=== PATIENT | female | born 1960 | race Caucasian/White ===

== ENCOUNTER 2019-04-16 13:19 | Emergency (ER) | payer OTHER ==
[~2019-04-16] VITALS: Ht 160 cm; Wt 72.6 kg
[~2019-04-16 13:19] MED LIST: ANTIVERT25 MG PO; BACTRIM DS TAB1 EACH PO; BIAXIN 250MG T250 MG PO; CIPROFLOXACIN500 M1 PO; CLARITIN10 MG; FISH OIL 1,001000 M2 PO; FLAGYL500 MG PO; FLEXERIL PO; HYDROCODON-ACE1 EACH PO; METHADOSE40 MG PO; NOHOMEMEDICATIONS; NORCO 5-325 TA1 EACH PO; PHENERGAN 25 MG25 M1 PO; SERTRALINE HCL50 MG PO; ZEGERID 20 MG1 EACH PO; ZOFRAN ODT4 MG PO; ZYRTEC10 MG PO
[2019-04-16 14:20] VITALS: BP 137/68
== END 2019-04-16 14:20 | disposition home or self-care (01) ==
LOC: M.ERS 13:19
DX: S93.691A Other sprain of right foot, initial encounter (principal); S90.121A Contusion of right lesser toe(s) without damage to nail, initial encounter; Z90.710 Acquired absence of both cervix and uterus; Z90.12 Acquired absence of left breast and nipple; Z90.49 Acquired absence of other specified parts of digestive tract; Z88.0 Allergy status to penicillin; Z88.5 Allergy status to narcotic agent; Z87.891 Personal history of nicotine dependence; W01.0XXA Fall on same level from slipping, tripping and stumbling without subsequent striking against object, initial encounter; Y93.89 Activity, other specified; Y92.89 Other specified places as the place of occurrence of the external cause; Y99.8 Other external cause status

== ENCOUNTER 2020-05-06 17:35 | Emergency (ER) | payer MEDICARE ==
[~2020-05-06] VITALS: Ht 157.5 cm; Wt 83.9 kg
[2020-05-06] MEDS ORDERED: NORCO 5-325 TA1 EAC2 PO (21:30)
[2020-05-06 21:44] VITALS: BP 125/71
== END 2020-05-06 21:48 | disposition home or self-care (01) ==
LOC: M.ERS 17:35
DX: M79.671 Pain in right foot (principal); Z90.49 Acquired absence of other specified parts of digestive tract; Z90.710 Acquired absence of both cervix and uterus; Z87.891 Personal history of nicotine dependence; Z88.0 Allergy status to penicillin; Z88.6 Allergy status to analgesic agent; Z88.8 Allergy status to other drugs, medicaments and biological substances

== ENCOUNTER 2020-11-21 10:52 | Observation (INO) | payer OTHER ==
[~2020-11-21] VITALS: Ht 160 cm; Wt 88.9 kg
[~2020-11-21 10:52] MED LIST changes: +NORCO 5-325 TA1 EAC2 PO
[2020-11-21 10:58] VITALS: BP 184/76
[2020-11-21] MEDS ORDERED: OMEPRAZOLE40 MG PO (11:01)
[2020-11-21 11:30] LABS: URINE BILIRUBIN NEGATIVE (Negative); URINE BLOOD TRACE (Negative); URINE CLARITY CLEAR; URINE COLOR YELLOW; URINE GLUCOSE-RANDOM NEGATIVE (Negative); URINE KETONES NEGATIVE (Negative); URINE LEUKOCYTES-REFLEX TRACE (Negative); URINE NITRITE-REFLEX NEGATIVE (Negative); URINE PROTEIN NEGATIVE (Negative); URINE SPECIFIC GRAVITY 1.015 (1.005-1.030); URINE UROBILINOGEN 0.2 E.U./dl (0.2-1.0)
[2020-11-21 11:37] LABS: SQUAMOUS 0-3 Few /LPF (0-3); URINE WBC-REFLEX 0-5 Rare /HPF (0-5)
[2020-11-21 11:38] LABS: BACTERIA-REFLEX 1-9 Few /HPF (None Seen); CASTS None Seen /LPF (None Seen); CRYSTALS None Seen /LPF (None Seen); URINE RBC None Seen /HPF (0-2)
[2020-11-21 11:41] LABS: ABSOLUTE BASOPHILS 0.1 thou/uL (0.0-0.2); ABSOLUTE EOSINOPHILS 0.1 thou/uL (0.0-0.7); ABSOLUTE MONOCYTES 0.4 thou/uL (0.0-1.2); ABSOLUTE NEUTROPHILS 7.4 thou/uL (1.6-8.1); BASOPHILS 0.9 %; EOSINOPHILS 0.7 %; HEMATOCRIT 38.2 % (37.0-47.0); HEMOGLOBIN 12.9 gm/dL (12.0-15.0); LYMPHOCYTES 19.8 %; MCHC 33.6 g/dL (28.0-37.0); MCV 77.3 fL (80.0-100.0); MONOCYTES 4.3 %; MPV 6.7 fl. (7.2-11.1); NUCLEATED RBCS 0 /100WBC; PLATELET COUNT* 309 thou/uL (150-400); POLYS 74.3 %; RBC 4.95 mil/uL (4.20-5.00); RDW-CV 15.9 % (10.5-14.5)
[2020-11-21 11:48] LABS: CALCIUM 9.6 mg/dL (8.5-10.1); CREATININE 0.8 mg/dL (0.6-1.3); POTASSIUM 4.6 mmol/L (3.5-5.1)
[2020-11-21 11:52] LABS: APTT 30.6 Seconds (25.0-31.3); PROTIME 10.4 Seconds (9.20-11.50)
[2020-11-21 11:53] LABS: ALBUMIN 3.4 g/dL (3.4-5.0); TOTAL BILIRUBIN 0.3 mg/dL (<0.1-1.0); TOTAL PROTEIN 8.4 g/dL (6.4-8.2)
--- NOTE | 2020-11-21 14:03 | EKG ---
[place] [address] ELECTROCARDIOGRAM REPORT Name: JOSHUAYAQUELINANDREA Room: [address] M.R.#: [id number] Admission: 11/21/20 Attend Phys: Jacob Allen Discharge: Date of : 56 Date of Service: 11/21/20 1127 Report #: [id number] THIS REPORT FOR: //name// [facility] ED Test Date: 2020-11-21 Test Time: 11:27:47 Pat Name: ANDREA PEREZ Department: Room: [facility] Gender: F Server: ADAM : 1960 Requested By: Jhoana Rodney Order Number: [id number] MD: Kit Aggarwal Measurements Intervals [place] Rate: 65 P: 74 ID: [id number] QRS: 74 QRSD: 85 T: 56 QT: 413 QTc: 430 Interpretive Statements Sinus rhythm Baseline wander in lead(s) V1 Compared to ECG 12/09/2015 10:34:57 No significant changes Electronically Signed On 11-21-2020 14:03:04 [employer] by Kit Aggarwal [email or web address] <ELECTRONICALLY SIGNED> By: Kit Aggarwal MD, [facility] 11/21/20 1403 1127 1127 Kit Aggarwal MD, [facility] /EPI
[2020-11-21 16:58] VITALS: BP 130/70
[2020-11-21 17:30] VITALS: BP 168/78
[2020-11-21 20:14] VITALS: BP 151/71
[2020-11-21] MEDS ORDERED: METHADONE HCL40 MG PO (22:19)
[2020-11-22 00:33] VITALS: BP 127/69
[2020-11-22 02:06] LABS: GLYCOHEMOGLOBIN (HGB A1C) 6.2 % (4.8-5.6)
[2020-11-22 04:49] VITALS: BP 126/2
[2020-11-22 08:00] VITALS: BP 149/71
[2020-11-22] MEDS ORDERED: BACTRIM DS TAB1 EAC1 PO (10:03)
[2020-11-22 10:58] VITALS: BP 149/71
--- NOTE | 2020-11-22 14:00 | 2DMMODE ---
[place] [address] 2 D/M-MODE ECHOCARDIOGRAM Name: ANDREA PEREZ RAUL Room: [address] Shaun#: [id number] Admission: 11/21/20 Attend Phys: Jacob Allen Discharge: Date of : 56 Date of Service: 11/22/20 1359 Report #: [id number] THIS REPORT FOR: cc: EDGAR PIZANO NP, KATHERINE J. NP Liston, Michael J. MD [facility] ~ APPROVED REPORT Study performed: 11/22/2020 10:00:50 EXAM: Comprehensive 2D, Doppler, and color-flow Echocardiogram Patient Location: In-Patient Room #: [facility] Status: routine BSA: 1.78 HR: 67 bpm BP: 127/69 mmHg Rhythm: NSR Other Information Study Quality: Good Indications Dizziness 2D Dimensions IVSd: 9.82 (7-11mm) LVOT Diam: 19.31 (18-24mm) LVDd: 42.75 mm PWd: 8.10 (7-11mm) Ascending Ao: 24.73 (22-36mm) LVDs: 28.89 (25-40mm) Aortic Root: 27.90 mm Volumes Left Atrial Volume (Systole) LA ESV Index: 24.00 mL/m2 Aortic Valve AoV Peak Thiago.: 1.75 m/s AO Peak Gr.: 12.22 mmHg LVOT Max P.75 mmHg AO Mean Gr.: 6.40 mmHg LVOT Mean P.05 mmHg LVOT Max V: 1.30 m/s AO V2 VTI: 33.94 cm LVOT Mean V: 0.80 m/s JAYJAY (VTI): 2.17 cm2 LVOT V1 VTI: 25.12 [place] [address] 2 D/M-MODE ECHOCARDIOGRAM Name: ANDREA PEREZ Room: [address] M.R.#: [id number] Admission: 11/21/20 Attend Phys: Jacob Allen Discharge: Date of : 56 Date of Service: 11/22/20 1359 Report #: [id number] Mitral Valve E/A Ratio: 1.00 MV Decel. Time: 207.19 ms MV E Max Thiago.: 0.75 m/s MV PHT: 60.09 ms MVA (PHT): 3.66 cm2 TDI E/Lateral E': 12.50 E/Medial E': 7.50 Medial E' Thiago.: 0.10 m/s Lateral E' Thiago.: 0.06 m/s Pulmonary Valve PV Peak Thiago.: 1.17 m/s PV Peak Gr.: 5.51 mmHg Tricuspid Valve RAP Estimate: 5.00 mmHg TR Peak Gr.: 27.24 mmHg RVSP: 32.00 mmHg PA Pressure: 32.00 mmHg Left Ventricle The left ventricle is normal size. There is normal LV segmental wall motion. There is normal left ventricular wall thickness. Left ventricular systolic function is normal. LVEF is >70%. Transmitral Doppler flow pattern suggests impaired LV relaxation. Right Ventricle The right ventricle is normal size. The right ventricular systolic function is normal. Atria The left atrium size is normal. The right atrium size is normal. Aortic Valve Mild aortic valve sclerosis. No aortic regurgitation is present. There is no aortic valvular stenosis. Mitral Valve The mitral valve is normal in structure. Trace mitral regurgitation. No evidence of mitral valve stenosis. Tricuspid Valve The tricuspid valve is normal in structure. Trace tricuspid regurgitation. The RVSP is 30-35 [place].. [place] [address] 2 D/M-MODE ECHOCARDIOGRAM Name: ANDREA PEREZ RAUL Room: [address]#: [id number] Admission: 11/21/20 Attend Phys: Jacob Allen Discharge: Date of : 56 Date of Service: 11/22/20 1359 Report #: [id number] Pulmonic Valve The pulmonary valve is normal in structure. There is no pulmonic valvular regurgitation. Great Vessels The aortic root is normal in size. IVC is normal in size and collapses >50% with inspiration. Pericardium There is no pericardial effusion. <Conclusion> The left ventricle is normal size. There is normal left ventricular wall thickness. Left ventricular systolic function is normal. LVEF is >70%. Transmitral Doppler flow pattern suggests impaired LV relaxation. Mild aortic valve sclerosis. Trace mitral regurgitation. Trace tricuspid regurgitation. The RVSP is 30-35 mmHg.. <ELECTRONICALLY SIGNED> By: Semaj Bryan MD, FACC 11/22/20 1359 1359 1359 Semaj Bryan MD, FACC /INF
== END 2020-11-22 12:30 | disposition home or self-care (01) ==
LOC: M.ERS 10:52 → M.TBA-ER 13:32 → M.2W 18:06
PROVIDERS: Nurse Practitioner Family; ADMIT Internal Medicine; ATTEND Internal Medicine
DX: N39.0 Urinary tract infection, site not specified (principal); R42 Dizziness and giddiness; G43.909 Migraine, unspecified, not intractable, without status migrainosus; G89.29 Other chronic pain; Z20.822 Contact with and (suspected) exposure to COVID-19; Z98.890 Other specified postprocedural states; Z90.710 Acquired absence of both cervix and uterus; Z90.49 Acquired absence of other specified parts of digestive tract; Z79.891 Long term (current) use of opiate analgesic; Z87.891 Personal history of nicotine dependence

== ENCOUNTER → 2021-07-24 | Outpatient (CLI) | payer OTHER ==
[~2021-07-24] MED LIST changes: +BACTRIM DS TAB1 EAC1 PO; +METHADONE HCL40 MG PO; +OMEPRAZOLE40 MG PO
== END ==
LOC: M.CT 07:42
PROVIDERS: ATTEND Nurse Practitioner Family
DX: K80.50 Calculus of bile duct without cholangitis or cholecystitis without obstruction (principal); R10.84 Generalized abdominal pain